=== PATIENT | male | born 1930 | race Caucasian/White ===

== ENCOUNTER 2018-06-29 15:59 | Inpatient (IN) | payer MEDICARE ==
[2018-06-29 16:39] VITALS: BMI 20.1
[2018-06-29] MEDS ORDERED: Senokot 8.6 MG TAB PO PRN (17:14)
[2018-06-29] MEDS ORDERED: traMADol HCl 50 MG TAB PO PRN (17:14)
[2018-06-29] MEDS ORDERED: Guaifenesin DM 100-10/5 ML UDCUP PO PRN (17:14)
[2018-06-29] MEDS: Acetaminophen 325 MG TAB PO SCH (18:46)
[2018-06-29] MEDS ORDERED: Rosuvastatin 10 MG TAB PO SCH (21:00)
[2018-06-29] MEDS ORDERED: Mirtazapine 15 MG TAB PO SCH (21:00)
[2018-06-29] MEDS: Metoprolol Tartrate 50 MG TAB PO SCH (21:10)
[2018-06-29] MEDS: Gabapentin 100 MG CAP PO SCH (21:10)
[2018-06-29] MEDS: Senokot S 8.6-50 MG TAB PO SCH (21:10)
[2018-06-29] MEDS: Cephalexin 250 MG CAP PO SCH (21:11)
[2018-06-30] MEDS: Acetaminophen 325 MG TAB PO SCH ×5 (00:19→23:55)
[2018-06-30] MEDS: Cephalexin 250 MG CAP PO SCH ×3 (08:44→20:57)
[2018-06-30] MEDS: Gabapentin 100 MG CAP PO SCH ×2 (08:44→20:57)
[2018-06-30] MEDS: Metoprolol Tartrate 50 MG TAB PO SCH ×2 (08:44→20:58)
[2018-06-30] MEDS: Senokot S 8.6-50 MG TAB PO SCH ×2 (08:45→20:58)
[2018-06-30] MEDS ORDERED: Polyethylene Glycol 3350 17 GM Packet PO SCH (09:00)
[2018-06-30] MEDS ORDERED: Calcium Carbonate + Vit D 1 TAB PO SCH (09:00)
[2018-06-30] MEDS ORDERED: Aspirin 81 mg Enteric Coated Tablet PO SCH (09:00)
[2018-06-30] MEDS ORDERED: Famotidine 20 MG TAB PO SCH (09:00)
[2018-06-30] MEDS ORDERED: Bacitracin Zinc Ointment 30 gm TUBE TOP SCH (09:00)
--- NOTE | 2018-06-30 13:45 | HP ---
PRIMARY CARE PHYSICIAN: Dr. Aureliano Bolaños in [place]. FAN BLADE ALIGNER: Dr. Singer. INFECTIOUS DISEASE: Dr. Musa. PUPPY SITTER: Dr. Moran. NEUROSURGEON: Dr. Herrera. REASON FOR ADMISSION: Skilled rehab in [facility] post hospitalization. HISTORY OF PRESENT ILLNESS AND HOSPITAL COURSE: Mr. Lujan is a very pleasant 88-year-old with history of hypertension, sinus bradycardia, hypercholesterolemia. The patient was initially admitted to [facility] after he had a mechanical fall at home. Apparently, he reports that he was standing when he hit his face on the door and had an extension of his neck. CT scan for further evaluation of his head and cervicothoracic spine revealed C5-C6 vertebral body fracture and C4-C5 spinous process fracture. He was subsequently admitted to [facility] and neurosurgeon was consulted. Dr. Herrera recommended conservative management only with [place] cervical collar. Hospital course was complicated with sick sinus syndrome. Dr. Daniel Moran was consulted, who recommended pacemaker placement. Echocardiogram at that time showed ejection fraction of 55% to 60% with mild mitral regurgitation, aortic valve sclerosis, and mild tricuspid regurgitation. The patient also underwent pacemaker placement on 06/22/2018. 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 Patient is apparently on chronic salvage determiner Keflex suppression. Dr. Musa recommended discontinuation of the Keflex this time. Per report, the family seems to be very attached to that idea that she needs to be on chronic Keflex suppression, thus the Keflex was continued. There were no further signs of infection per pacemaker site reported and ID specialist recommended to continue Hibiclens and preoperative antimicrobial prophylaxis for the device placement. During this hospitalization, the patient was also noted to have swallowing issues. Speech Therapy was consulted and he was placed on pureed diet with nectar-thickened liquids, for which he is tolerant. Daughter reports that the patient has intermittent coughing with it, but he is on Mucinex and it seems to help. Patient was then transferred to [facility] for purposes of skilled rehab. He states that he remains generally weak. He has started ambulating in the hospital prior to transfer using the walker. Patient was deemd to benefit further from rehab pror to going back back home. When evaluated in medical floor today,the patient reports that he still has intermittent pain on the back of his neck. He is wearing the cervical collar and is very compliant with it. He reports that he can sleep with the collar on without any problem. Patient and spouse reported that patient's baseline functional status at home was, he walks with some unsteadiness, so he uses his walker with long distance ambulation. PAST MEDICAL AND SURGICAL HISTORY: 1. Hypertension. 2. Hypercholesterolemia. 3. Prostate cancer, status post stent. 4. History of bladder cancer. 5. History of cardiac stent. 6. Pacemaker placement, 06/22/2018, by Dr. Daniel Moran. SOCIAL HISTORY: The patient states that he drinks socially. Denies drug use or smoking. Lives with his . CURRENT MEDICATIONS: 1. Aspirin 81 mg p.o. daily. 2. Clopidogrel 75 mg p.o. daily. 3. Cephalexin 500 mg p.o. t.i.d. 4. Mirtazapine 7.5 mg p.o. daily. 5. Crestor 10 mg p.o. q.h.s. 6. Bacitracin Zinc ointment topically t.i.d. 7. Famotidine 20 mg p.o. daily. 8. Guaifenesin/dextromethorphan 15 mL p.o. q.4 hours p.r.n. 9. DuoNeb q.4 p.r.n. 10. Metoprolol 50 mg p.o. b.i.d. 11. Senokot two tablets p.o. b.i.d., then two tablets daily p.r.n. 12. Tramadol 50 mg p.o. q.6 hours p.r.n. 13. Acetaminophen 650 mg p.o. q.6 hours p.r.n. 14. O2 to keep O2 sats 94 and above p.r.n. REVIEW OF SYSTEMS: GENERAL: Denies fever or chills. Reports fatigue, general weakness, and decreased appetite. HEENT: No acute visual changes or hearing changes. No headaches. RESPIRATORY: Reports shortness of breath and some occasional coughing, Denies pain with breathing, or sputum production. CARDIAC: No chest pain, dyspnea on exertion, paroxysmal nocturnal dyspnea, or syncopal episodes. GI: Reports constipation. No nausea, vomiting, abdominal pain, or diarrhea. No rectal bleeding or black tarry stools. GENITOURINARY: No dysuria, hematuria, frequency, urgency, or incontinence. MUSCULOSKELETAL: Reports neck pain and intermittent joint pains, otherwise no joint effusions. SKIN: Reports postoperative site on the left chest and bruises in the face and forehead. No other rashes, skin lesions, or nonhealing ulcers. PSYCHIATRIC: No hallucinations, depression, anxiety, or insomnia. PHYSICAL EXAMINATION: VITAL SIGNS: Blood pressure 120/62, temperature 99.1, pulse 62, respirations 18 , O2 saturations 96% on room air, weight 121 pounds and 3 ounces, height 5 feet 5 inches. GENERAL: The patient is awake, alert, oriented x3. Not in distress. No signs of discomfort or agony. Comfortably resting in bed. Family at bedside consisting of daughter and spouse. HEENT: Bruises on the left side of the forehead and left side of the cheek noted, no facial swelling, asymmetry.. PERRL. Intact EOM. Nonicteric sclerae. No nystagmus. Oral mucosa is moist.Tongue in the midline. No tremors. Moist oral mucosa. No oral lesions. NECK: Supple with limited range of motion secondary to discomfort/pain. No significant swelling or redness. Wears cervical collar. No LAD. Flat JVD. No bruit. CHEST: Normal excursion. Clear to auscultation bilaterally. Pacemaker in place. Postoperative site on the left upper anterior chest wall intact, dry and clean, healing in appearance. No exudates. no surrounding erythema/edema. No signs of infection. CARDIAC: RRR. No murmurs. GI: Flat, nondistended. Normoactive bowel sounds. Nontender. Negative CVA tenderness, bilaterally. EXTREMITIES: No edema. No cyanosis. PSYCHIATRIC: Appears calm with appropriate demeanor and affect. ASSESSMENT: 1. Physical deconditioning/general weakness. 2. Closed C5-C6 vertebral body fracture, C4-C5 spinous process fracture. S/P Mechanical fall at home. For conservative management only with cervical collar. 3. Sick sinus syndrome, status post pacemaker placement on 06/22/2018. 4. Unsteadiness of gait. 5. Dysphagia, oropharyngeal. SECONDARY DIAGNOSES: 1. Hypertension. 2. Dyslipidemia. 3. Abnormal weight loss. 4. Neuropathic pain. PLAN: The patient is admitted to [facility] for purposes of skilled rehab. PT to consult to gain modified independence with his gait and ADL skills prior to returning to the home environment. OT consult to gain modified independence with self-care and ADL skills prior to going back to the home environment. ST consult for swallowing issues. He will continue his current . Pureed and nectar thickened liquids. Aspiration precautions at all times. Nutritional supplements. We will continue the patient for any medical comorbidities that may interfere with rehab progress. His comorbidities include the closed cervical fractures that is for conservative management only. Recommended to continue wearing the cervical collar all the time. We will continue wound care monitoring for postop site. The patient's pain will be managed with p.r.n. narcotics as well as constipation management. ESTIMATED LENGTH OF STAY: 2 to 3 weeks. CODE STATUS: The patient reports do not resuscitate in the presence of his and daughter. agrees as she states that they both have living eisenberg at home and they are both are DO NOT RESUSCITATE. Daughter concurs with the patient's wishes. WIll order DNAR. Job ID: [id number] MTDD
[2018-06-30] MEDS ORDERED: Guaifenesin DM 100-10/5 ML UDCUP PO PRN (17:35)
[2018-06-30] MEDS ORDERED: Senokot 8.6 MG TAB PO PRN (17:36)
[2018-06-30] MEDS: Rosuvastatin 10 MG TAB PO SCH (20:58)
[2018-06-30] MEDS: Mirtazapine 15 MG TAB PO SCH (20:58)
[2018-06-30] MEDS: traMADol HCl 50 MG TAB PO PRN (22:28)
[2018-07-01] MEDS: Acetaminophen 325 MG TAB PO SCH ×3 (05:42→17:36)
[2018-07-01] MEDS: Metoprolol Tartrate 50 MG TAB PO SCH ×2 (08:45→20:19)
[2018-07-01] MEDS: Cephalexin 250 MG CAP PO SCH ×3 (08:45→20:19)
[2018-07-01] MEDS: Gabapentin 100 MG CAP PO SCH ×2 (08:45→20:19)
[2018-07-01] MEDS: Aspirin 81 mg Enteric Coated Tablet PO SCH (08:45)
[2018-07-01] MEDS: Famotidine 20 MG TAB PO SCH (08:45)
[2018-07-01] MEDS: Calcium Carbonate + Vit D 1 TAB PO SCH (08:46)
[2018-07-01] MEDS: Bacitracin Zinc Ointment 30 gm TUBE TOP SCH (08:46)
[2018-07-01] MEDS: Polyethylene Glycol 3350 17 GM Packet PO SCH (08:49)
[2018-07-01] MEDS: Senokot S 8.6-50 MG TAB PO SCH ×2 (08:54→20:19)
[2018-07-01] MEDS: Rosuvastatin 10 MG TAB PO SCH (20:19)
[2018-07-02] MEDS: Acetaminophen 325 MG TAB PO SCH ×5 (00:37→23:26)
[2018-07-02] MEDS: Senokot S 8.6-50 MG TAB PO SCH ×2 (08:16→20:53)
[2018-07-02] MEDS: Cephalexin 250 MG CAP PO SCH ×3 (08:16→20:52)
[2018-07-02] MEDS: Metoprolol Tartrate 50 MG TAB PO SCH ×2 (08:16→20:52)
[2018-07-02] MEDS: Famotidine 20 MG TAB PO SCH (08:16)
[2018-07-02] MEDS: Polyethylene Glycol 3350 17 GM Packet PO SCH (08:17)
[2018-07-02] MEDS: Calcium Carbonate + Vit D 1 TAB PO SCH (08:17)
[2018-07-02] MEDS: Bacitracin Zinc Ointment 30 gm TUBE TOP SCH (08:17)
[2018-07-02] MEDS: Gabapentin 100 MG CAP PO SCH ×2 (08:17→20:52)
[2018-07-02] MEDS: Aspirin 81 mg Enteric Coated Tablet PO SCH (08:17)
[2018-07-02] MEDS: Mirtazapine 15 MG TAB PO SCH (20:52)
[2018-07-02] MEDS: Rosuvastatin 10 MG TAB PO SCH (20:53)
[2018-07-03] MEDS: Acetaminophen 325 MG TAB PO SCH ×4 (05:33→23:59)
[2018-07-03] MEDS: Gabapentin 100 MG CAP PO SCH ×2 (08:38→21:07)
[2018-07-03] MEDS: Aspirin 81 mg Enteric Coated Tablet PO SCH (08:38)
[2018-07-03] MEDS: Metoprolol Tartrate 50 MG TAB PO SCH ×2 (08:38→21:08)
[2018-07-03] MEDS: Cephalexin 250 MG CAP PO SCH ×3 (08:38→21:07)
[2018-07-03] MEDS: Calcium Carbonate + Vit D 1 TAB PO SCH (08:38)
[2018-07-03] MEDS: Famotidine 20 MG TAB PO SCH (08:38)
[2018-07-03] MEDS: Senokot S 8.6-50 MG TAB PO SCH ×2 (08:38→21:08)
[2018-07-03] MEDS: Polyethylene Glycol 3350 17 GM Packet PO SCH (08:39)
[2018-07-03] MEDS: Bacitracin Zinc Ointment 30 gm TUBE TOP SCH (08:39)
[2018-07-03] MEDS: Rosuvastatin 10 MG TAB PO SCH (21:08)
[2018-07-04] MEDS: Acetaminophen 325 MG TAB PO SCH ×3 (06:01→17:07)
[2018-07-04] MEDS: Bacitracin Zinc Ointment 30 gm TUBE TOP SCH (08:37)
[2018-07-04] MEDS: Senokot S 8.6-50 MG TAB PO SCH ×2 (08:37→20:53)
[2018-07-04] MEDS: Metoprolol Tartrate 50 MG TAB PO SCH ×2 (08:38→20:29)
[2018-07-04] MEDS: Aspirin 81 mg Enteric Coated Tablet PO SCH (08:38)
[2018-07-04] MEDS: Calcium Carbonate + Vit D 1 TAB PO SCH (08:38)
[2018-07-04] MEDS: Cephalexin 250 MG CAP PO SCH ×3 (08:38→20:28)
[2018-07-04] MEDS: Gabapentin 100 MG CAP PO SCH ×2 (08:38→20:29)
[2018-07-04] MEDS: Famotidine 20 MG TAB PO SCH (08:38)
[2018-07-04] MEDS: Polyethylene Glycol 3350 17 GM Packet PO SCH (08:39)
[2018-07-04] MEDS: Rosuvastatin 10 MG TAB PO SCH (20:28)
[2018-07-04] MEDS: Mirtazapine 15 MG TAB PO SCH (20:29)
[2018-07-05] MEDS: Acetaminophen 325 MG TAB PO SCH ×5 (00:17→18:02)
[2018-07-05] MEDS: Aspirin 81 mg Enteric Coated Tablet PO SCH (08:44)
[2018-07-05] MEDS: Famotidine 20 MG TAB PO SCH (08:45)
[2018-07-05] MEDS: Bacitracin Zinc Ointment 30 gm TUBE TOP SCH (08:45)
[2018-07-05] MEDS: Gabapentin 100 MG CAP PO SCH ×2 (08:45→20:33)
[2018-07-05] MEDS: Cephalexin 250 MG CAP PO SCH ×3 (08:45→20:33)
[2018-07-05] MEDS: Calcium Carbonate + Vit D 1 TAB PO SCH (08:45)
[2018-07-05] MEDS: Polyethylene Glycol 3350 17 GM Packet PO SCH (08:46)
[2018-07-05] MEDS: Senokot S 8.6-50 MG TAB PO SCH ×2 (08:46→20:33)
[2018-07-05] MEDS: Metoprolol Tartrate 50 MG TAB PO SCH ×2 (08:46→20:34)
[2018-07-05] MEDS: Rosuvastatin 10 MG TAB PO SCH (20:33)
[2018-07-06] MEDS: Acetaminophen 325 MG TAB PO SCH ×4 (00:11→17:16)
[2018-07-06] MEDS: traMADol HCl 50 MG TAB PO PRN (00:27)
[2018-07-06] MEDS: Cephalexin 250 MG CAP PO SCH ×3 (09:14→20:50)
[2018-07-06] MEDS: Aspirin 81 mg Enteric Coated Tablet PO SCH (09:14)
[2018-07-06] MEDS: Famotidine 20 MG TAB PO SCH (09:14)
[2018-07-06] MEDS: Gabapentin 100 MG CAP PO SCH ×2 (09:14→20:50)
[2018-07-06] MEDS: Metoprolol Tartrate 50 MG TAB PO SCH ×2 (09:14→20:50)
[2018-07-06] MEDS: Calcium Carbonate + Vit D 1 TAB PO SCH (09:14)
[2018-07-06] MEDS: Senokot S 8.6-50 MG TAB PO SCH ×2 (09:14→20:51)
[2018-07-06] MEDS: Bacitracin Zinc Ointment 30 gm TUBE TOP SCH (09:15)
[2018-07-06] MEDS: Polyethylene Glycol 3350 17 GM Packet PO SCH (09:22)
[2018-07-06] MEDS: Mirtazapine 15 MG TAB PO SCH (20:50)
[2018-07-06] MEDS: Rosuvastatin 10 MG TAB PO SCH (20:51)
[2018-07-07] MEDS: Acetaminophen 325 MG TAB PO SCH ×4 (01:36→17:39)
[2018-07-07] MEDS: Polyethylene Glycol 3350 17 GM Packet PO SCH (08:48)
[2018-07-07] MEDS: Senokot S 8.6-50 MG TAB PO SCH ×2 (08:48→21:12)
[2018-07-07] MEDS: Cephalexin 250 MG CAP PO SCH ×3 (08:48→21:12)
[2018-07-07] MEDS: Metoprolol Tartrate 50 MG TAB PO SCH ×2 (08:49→21:12)
[2018-07-07] MEDS: Bacitracin Zinc Ointment 30 gm TUBE TOP SCH (08:49)
[2018-07-07] MEDS: Aspirin 81 mg Enteric Coated Tablet PO SCH (08:49)
[2018-07-07] MEDS: Famotidine 20 MG TAB PO SCH (08:49)
[2018-07-07] MEDS: Calcium Carbonate + Vit D 1 TAB PO SCH (08:49)
[2018-07-07] MEDS: Gabapentin 100 MG CAP PO SCH ×2 (08:49→21:12)
[2018-07-07] MEDS: traMADol HCl 50 MG TAB PO PRN (11:39)
[2018-07-07] MEDS: Rosuvastatin 10 MG TAB PO SCH (21:12)
[2018-07-08] MEDS: Acetaminophen 325 MG TAB PO SCH ×4 (02:20→18:01)
[2018-07-08] MEDS: Metoprolol Tartrate 50 MG TAB PO SCH ×2 (08:52→20:27)
[2018-07-08] MEDS: Aspirin 81 mg Enteric Coated Tablet PO SCH (08:52)
[2018-07-08] MEDS: Gabapentin 100 MG CAP PO SCH ×2 (08:52→20:29)
[2018-07-08] MEDS: Famotidine 20 MG TAB PO SCH (08:52)
[2018-07-08] MEDS: Cephalexin 250 MG CAP PO SCH ×3 (08:52→20:28)
[2018-07-08] MEDS: Polyethylene Glycol 3350 17 GM Packet PO SCH (08:53)
[2018-07-08] MEDS: Senokot S 8.6-50 MG TAB PO SCH ×2 (08:53→20:27)
[2018-07-08] MEDS: Calcium Carbonate + Vit D 1 TAB PO SCH (08:53)
[2018-07-08] MEDS: Bacitracin Zinc Ointment 30 gm TUBE TOP SCH (09:00)
[2018-07-08] MEDS: Mirtazapine 15 MG TAB PO SCH (20:28)
[2018-07-08] MEDS: Rosuvastatin 10 MG TAB PO SCH (20:29)
[2018-07-09] MEDS: Acetaminophen 325 MG TAB PO SCH ×4 (00:12→17:10)
[2018-07-09] MEDS: Gabapentin 100 MG CAP PO SCH ×2 (09:09→21:05)
[2018-07-09] MEDS: Famotidine 20 MG TAB PO SCH (09:09)
[2018-07-09] MEDS: Metoprolol Tartrate 50 MG TAB PO SCH ×2 (09:09→21:05)
[2018-07-09] MEDS: Polyethylene Glycol 3350 17 GM Packet PO SCH (09:09)
[2018-07-09] MEDS: Cephalexin 250 MG CAP PO SCH ×3 (09:10→21:05)
[2018-07-09] MEDS: Bacitracin Zinc Ointment 30 gm TUBE TOP SCH (09:10)
[2018-07-09] MEDS: Calcium Carbonate + Vit D 1 TAB PO SCH (09:10)
[2018-07-09] MEDS: Senokot S 8.6-50 MG TAB PO SCH ×2 (09:10→21:05)
[2018-07-09] MEDS: Aspirin 81 mg Enteric Coated Tablet PO SCH (09:10)
[2018-07-09] MEDS: Rosuvastatin 10 MG TAB PO SCH (21:05)
[2018-07-10] MEDS: Acetaminophen 325 MG TAB PO SCH ×5 (00:15→21:35)
[2018-07-10] MEDS: Famotidine 20 MG TAB PO SCH (08:50)
[2018-07-10] MEDS: Cephalexin 250 MG CAP PO SCH ×3 (08:50→21:32)
[2018-07-10] MEDS: Metoprolol Tartrate 50 MG TAB PO SCH ×2 (08:51→21:33)
[2018-07-10] MEDS: Polyethylene Glycol 3350 17 GM Packet PO SCH (08:51)
[2018-07-10] MEDS: Calcium Carbonate + Vit D 1 TAB PO SCH (08:51)
[2018-07-10] MEDS: Senokot S 8.6-50 MG TAB PO SCH ×2 (08:51→21:34)
[2018-07-10] MEDS: Aspirin 81 mg Enteric Coated Tablet PO SCH (08:51)
[2018-07-10] MEDS: Gabapentin 100 MG CAP PO SCH ×2 (08:51→21:33)
[2018-07-10] MEDS: Bacitracin Zinc Ointment 30 gm TUBE TOP SCH (08:51)
[2018-07-10] MEDS: Mirtazapine 15 MG TAB PO SCH (21:33)
[2018-07-10] MEDS: Rosuvastatin 10 MG TAB PO SCH (21:34)
[2018-07-11] MEDS: Acetaminophen 325 MG TAB PO SCH ×2 (05:14→12:11)
[2018-07-11] MEDS: Calcium Carbonate + Vit D 1 TAB PO SCH (09:21)
[2018-07-11] MEDS: Aspirin 81 mg Enteric Coated Tablet PO SCH (09:21)
[2018-07-11] MEDS: Bacitracin Zinc Ointment 30 gm TUBE TOP SCH (09:21)
[2018-07-11] MEDS: Famotidine 20 MG TAB PO SCH (09:21)
[2018-07-11] MEDS: Gabapentin 100 MG CAP PO SCH ×2 (09:21→20:28)
[2018-07-11] MEDS: Metoprolol Tartrate 50 MG TAB PO SCH ×2 (09:21→20:28)
[2018-07-11] MEDS: Senokot S 8.6-50 MG TAB PO SCH ×2 (09:22→20:29)
[2018-07-11] MEDS: Polyethylene Glycol 3350 17 GM Packet PO SCH (09:22)
[2018-07-11] MEDS: Acetaminophen 325 MG TAB PO PRN (19:36)
[2018-07-11] MEDS: Rosuvastatin 10 MG TAB PO SCH (20:28)
[2018-07-12] MEDS: Calcium Carbonate + Vit D 1 TAB PO SCH (08:15)
[2018-07-12] MEDS: Aspirin 81 mg Enteric Coated Tablet PO SCH (08:15)
[2018-07-12] MEDS: Famotidine 20 MG TAB PO SCH (08:15)
[2018-07-12] MEDS: Senokot S 8.6-50 MG TAB PO SCH ×2 (08:16→20:12)
[2018-07-12] MEDS: Polyethylene Glycol 3350 17 GM Packet PO SCH (08:16)
[2018-07-12] MEDS: Metoprolol Tartrate 50 MG TAB PO SCH ×2 (08:16→20:14)
[2018-07-12] MEDS: Gabapentin 100 MG CAP PO SCH ×2 (08:16→20:13)
[2018-07-12] MEDS: Mirtazapine 15 MG TAB PO SCH (20:13)
[2018-07-12] MEDS: Rosuvastatin 10 MG TAB PO SCH (20:13)
[2018-07-13] MEDS: Aspirin 81 mg Enteric Coated Tablet PO SCH (09:27)
[2018-07-13] MEDS: Famotidine 20 MG TAB PO SCH (09:28)
[2018-07-13] MEDS: Metoprolol Tartrate 50 MG TAB PO SCH ×2 (09:28→20:00)
[2018-07-13] MEDS: Gabapentin 100 MG CAP PO SCH ×2 (09:28→20:00)
[2018-07-13] MEDS: Polyethylene Glycol 3350 17 GM Packet PO SCH (09:28)
[2018-07-13] MEDS: Senokot S 8.6-50 MG TAB PO SCH ×2 (09:28→20:00)
[2018-07-13] MEDS: Calcium Carbonate + Vit D 1 TAB PO SCH (09:28)
[2018-07-13] MEDS: Acetaminophen 325 MG TAB PO PRN (19:15)
[2018-07-13] MEDS: Rosuvastatin 10 MG TAB PO SCH (20:00)
[2018-07-14 06:55] VITALS: BP 165/76; TEMP 96.8
[2018-07-14] MEDS: Senokot S 8.6-50 MG TAB PO SCH (08:40)
[2018-07-14] MEDS: Aspirin 81 mg Enteric Coated Tablet PO SCH (08:40)
[2018-07-14] MEDS: Metoprolol Tartrate 50 MG TAB PO SCH (08:40)
[2018-07-14] MEDS: Calcium Carbonate + Vit D 1 TAB PO SCH (08:40)
[2018-07-14] MEDS: Famotidine 20 MG TAB PO SCH (08:40)
[2018-07-14] MEDS: Gabapentin 100 MG CAP PO SCH (08:40)
[2018-07-14] MEDS: Polyethylene Glycol 3350 17 GM Packet PO SCH (08:40)
== END 2018-07-14 15:07 | disposition home or self-care (01) | DRG 561 ==
LOC: MADMS 15:59 → UNDODISIN 06-30 09:34 → MADMS 07-04 10:00
PROVIDERS: ADMIT Family Medicine; ATTEND Family Medicine
DX: S12.400D Unspecified displaced fracture of fifth cervical vertebra, subsequent encounter for fracture with routine healing (principal); S12.500D Unspecified displaced fracture of sixth cervical vertebra, subsequent encounter for fracture with routine healing; S12.300D Unspecified displaced fracture of fourth cervical vertebra, subsequent encounter for fracture with routine healing; I10 Essential (primary) hypertension; E78.5 Hyperlipidemia, unspecified; Z66 Do not resuscitate; M79.2 Neuralgia and neuritis, unspecified; R63.4 Abnormal weight loss; R13.12 Dysphagia, oropharyngeal phase; R26.81 Unsteadiness on feet; Z85.46 Personal history of malignant neoplasm of prostate; Z85.51 Personal history of malignant neoplasm of bladder; Z98.61 Coronary angioplasty status; Z95.0 Presence of cardiac pacemaker; Z79.82 Long term (current) use of aspirin; Z79.899 Other long term (current) drug therapy; W19.XXXD Unspecified fall, subsequent encounter; Y92.009 Unspecified place in unspecified non-institutional (private) residence as the place of occurrence of the external cause
CPT/HCPCS: 94640; J7620

== ENCOUNTER 2018-08-09 10:58 | Outpatient (CLI) | payer MEDICARE ==
--- NOTE | 2018-08-09 12:29 | RAD ---
CERVICAL SPINE 3 VIEWS: HISTORY: Cervical spine fracture. COMPARISON: A 06/22/2018 CT examination. FINDINGS: The vertebral bodies appear demineralized. Severe degenerative disk narrowing is seen from C3-4 to C 6-7. There are marked degenerative facet changes present. Nondisplaced spinous process fractures of C5 and C6 are seen. It is difficult to appreciate a spinous process fracture at C4. The more obliq uely oriented fracture through the C5-6 level which appears to extend in oblique fashion through the disk level is difficult to appreciate. I do not see a definite disruption of the anterior ossificati on as was seen on the prior examination suggesting there is some healing. 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 Healing fractures of the cervical spine are noted. Overall alignment remains stable. POS: BARRY
== END 2018-08-09 10:59 | disposition home or self-care (01) ==
LOC: MADRAD 10:58
PROVIDERS: ATTEND Neurological Surgery
DX: S12.9XXA Fracture of neck, unspecified, initial encounter (principal); M46.92 Unspecified inflammatory spondylopathy, cervical region; S12.401D Unspecified nondisplaced fracture of fifth cervical vertebra, subsequent encounter for fracture with routine healing; S12.501D Unspecified nondisplaced fracture of sixth cervical vertebra, subsequent encounter for fracture with routine healing
CPT/HCPCS: 72040

== ENCOUNTER 2018-11-03 10:27 | Emergency (ER) | payer MEDICARE ==
[~2018-11-03 10:27] MED LIST: Sodium Chloride 0.9% 1,000 ML BAG ONE
[2018-11-03] MEDS ORDERED: Nitroglycerin 0.4 MG TAB 1 EACH ONE (11:01)
[2018-11-03] MEDS ORDERED: Aspirin Chewable 81 MG TAB ONE (11:01)
[2018-11-03 11:07] LABS: #Basophils 0.1 thou/uL (0.0-0.2); #Eosinphils 0.4 thou/uL (0.0-0.7); #Lymphocytes 1.8 thou/uL (1.20-3.40); #Monocytes 0.8 thou/uL (0.11-0.59); #Neutrophils 5.9 thou/uL (1.40-6.50); %Basophils 1.3 % (0.0-1.0); %Eosinophils 4.1 % (0.0-10.0); %Lymphocytes 19.9 % (21.0-51.0); %Monocytes 8.6 % (0.0-10.0); %Neutrophils 66.1 % (42.0-75.0); Hemoglobin 13.6 g/dL (14.0-18.0); Mean Corpuscular HGB CONC 31.5 g/dL (32.0-36.0); Mean Corpuscular Hemoglobin 27.2 pg (27.0-31.0); Mean Corpuscular Volume 86.5 fL (78.0-98.0); Mean Platelet Volume 6.2 fL (7.4-10.4); Platelet Count 199 thou/uL (130-400); RBC Distribution Width 12.9 % (11.5-14.5); Red Blood Cell (RBC) Count 5.01 mill/uL (4.70-6.10); White Blood Cell (WBC) Count 8.9 thou/uL (4.8-10.8)
[2018-11-03 11:21] LABS: ALT (SGPT) 48 U/L (8-55); AST (SGOT) 100 U/L (5-34); Albumin 3.9 g/dL (3.4-4.8); Alkaline Phosphatase 80 U/L (40-150); Anion Gap 12 mmol/L (10-20); BUN (Urea Nitrogen) 22 mg/dL (8.4-25.7); Bilirubin, Total 0.5 mg/dL (0.2-1.2); Calc. Creatinine Clearance 0 mL/min (70-130); Calcium 9.5 mg/dL (7.8-10.44); Carbon Dioxide 28 mmol/L (23-31); Chloride 109 mmol/L (98-107); Estimated GFR-MDRD 40; Globulin 2.3 g/dL (2.4-3.5); Glucose 114 mg/dL (83-110); Potassium 4.1 mmol/L (3.5-5.1); Protein, Total 6.2 g/dL (5.8-8.1); Sodium 145 mmol/L (136-145)
--- NOTE | 2018-11-03 12:25 | RAD ---
CHEST 1 VIEW: HISTORY: Chest pain. COMPARISON: 06/28/2018. FINDINGS: Left ICD. Minimal scattered chronic changes with some old granulomatous disease. Slight left hemidi aphragm elevation. No confluent pneumonia, overt edema, or pleural effusion. IMPRESSION: No acute intrathoracic disease. Mild stable chronic changes. Atherosclerosis of the aorta. POS: C
== END 2018-11-03 12:40 | disposition short-term general hospital (02) ==
LOC: MADERS 10:27
DX: R07.89 Other chest pain (principal)
CPT/HCPCS: 36415; 71045; 80053; 84484; 85025; 93005; 94760; J7050